=== PATIENT | male | born 1980 | race Caucasian/White ===

== ENCOUNTER 2020-06-02 08:15 | Emergency (ER) | payer SELFPAY ==
[2020-06-02] MEDS ORDERED: DIAZEPAM 5 MG TABLET PO ONE (08:45)
[2020-06-02] MEDS ORDERED: KETOROLAC TROMETHAMINE 60 MG/2 ML SDV IM ONE (08:45)
[2020-06-02] MEDS ORDERED: OXYCODONE-ACETAMINOPHEN 5-325 MG TABLET PO ONE (08:45)
--- NOTE | 2020-06-02 09:09 | ER Document Report ---
ED Fall - General Chief Complaint: Fall Injury Stated Complaint: FALL/BACK PAIN Time Seen by Provider: 06/02/20 08:34 Notes: CHIEF COMPLAINT: Back pain from fall HPI: 40-year-old male presenting to the emergency department for evaluation of low back pain after a mechanical fall. Tripped over his dog fell backwards landing on his buttocks on the steps. Complains of pain to the right lower back and lower spine region. Denies incontinence of urine or bowel denies numbness or tingling in the legs. ROS: See HPI - all other systems were reviewed and are otherwise negative Constitutional: no fever or recent illness : no dysuria Integumentary: no rash Allergy: no hives Musculoskeletal: + extremity pain or swelling, positive back pain Neurological: no numbness/tingling, no weakness MEDICATIONS: I agree with the patient medications as charted by the RN. ALLERGIES: I agree with the allergies as charted by the RN. PAST MEDICAL HISTORY/PAST SURGICAL HISTORY: Reviewed and agree as charted by RN. SOCIAL HISTORY: Reviewed and agree as charted by RN. FAMILY HISTORY: No significant familial comorbid conditions directly related to patient complaint EXAM: Reviewed vital signs as charted by RN. CONSTITUTIONAL: Airway patent; alert and oriented and responds appropriately to questions. Well-appearing, well-nourished, moderate distress secondary to pain HEAD: Normocephalic, atraumatic EYES: Conjunctivae clear, sclerae non-icteric ENT: normal nose; no bleeding; normal pharynx, normal voice, no stridor, NECK: Trachea is midline; spine non-tender, no step-offs, good range of motion; no contusions or hematomas CARD: Normal symmetric pulses; RRR; no murmurs, no clicks, no rubs, no gallops RESP: Normal chest excursion with respiration; chest wall appears atraumatic without ecchymoses or crepitance; Breath sounds clear and equal bilaterally ABD/GI: Appears atraumatic without contusions or hematomas; non-distended, soft, non-tender, no rebound, no guarding; no palpable organomegaly or masses PELVIS: Stable, nontender BACK: There is tender and swelling over the lower lumbar spine more on the right side in the area of L4-L5. There is bruising and abrasion with soft tissue swelling over the right lower lumbar musculature in the upper aspect of the right gluteal region with tenderness on palpation. No saddle anesthesia. Patient is able to weight-bear. EXT: Normal ROM in all joints; non-tender to palpation; no cyanosis, no effusions, no edema SKIN: Normal color for age and race; warm; dry; good turgor; no apparent lesions NEURO: Moves all extremities equally; Motor and sensory function intact PSYCH: The patient's mood and manner are appropriate. MDM: 40-year-old male injury to the low back from a fall. Will obtain x-ray imaging to evaluate for fracture he is neurologically intact. Will treat pain and reassess - Related data Allergies/Adverse Reactions: No Known Allergies Allergy (Verified 06/02/20 09:17) Past Medical History - Social History Smoking Status: Never Smoker Chew tobacco use (# tins/day): Yes Frequency of alcohol use: Occasional Family History: Reviewed & Not Pertinent Physical Exam - Vital signs Vitals: Temp Pulse Resp BP Pulse Ox 98.2 F 94 18 151/118 H 99 06/02/20 08:20 06/02/20 08:20 06/02/20 08:20 06/02/20 08:20 06/02/20 08:20 Course - Re-evaluation Re-evalutation: 06/02/20 10:16 X-ray of the lumbar spine shows very slight anterior wedging of T12 per the radiologist. This is not directly in the location of the patient's pain, patient states that he spent many years doing mixed martial arts as well. Discussed with Dr. Piedra, attending. Will obtain CT of the area to ensure no acute fracture 06/02/20 10:35 CT imaging of the T12 vertebra is likely chronic wedging, discussed with the patient, will place on pain medication, anti-inflammatories, muscle relaxer, orthopedic referral he is neurologically intact. Patient states he does feel better with the medications 06/02/20 10:39 I believe the patient's initial hypertension was related to his acute pain. We will have nursing recheck prior to discharge, if still mildly elevated may follow-up with PCP for recheck - Vital Signs Vital signs: Temp Pulse Resp BP Pulse Ox 98.2 F 94 18 151/118 H 99 06/02/20 08:49 06/02/20 08:20 06/02/20 08:20 06/02/20 08:20 06/02/20 08:20 Discharge - Discharge Clinical Impression: Contusion of lower back and pelvis, initial encounter, HTN (hypertension) with goal to be determined Fall down stairs Qualifiers: Encounter type: initial encounter Qualified Code(s): W10.8XXA - Fall (on) (from) other stairs and steps, initial encounter Condition: Stable Disposition: HOME, SELF-CARE Additional Instructions: 1. Warm heat to the lower back twice daily 2. no heavy lifting for 2-3 days 3. medications as prescribed, no driving on narcotics or muscle relaxers 4. follow up with orthopedics for further evaluation and treatment as needed for any continuing pain or problems, call for appt. 5. return to the ER for any onset of incontinence of urine, fever > 101 or worsening condition Prescriptions: Oxycodone HCl/Acetaminophen [Percocet 5-325 mg Tablet] 1 tab PO Q4H PRN #15 tab PRN Reason: Diazepam [Valium 5 mg Tablet] 5 mg PO QIDP PRN #15 tablet PRN Reason: Diclofenac Sodium [Voltaren 50 Mg Tablet.] 50 mg PO BID #20 tablet. Referrals: EILEEN BIRCH JR, DO [ACTIVE PROVISIONAL STAFF] - Follow up as needed
--- NOTE | 2020-06-02 09:36 | RADIOLOGY REPORT (SQ) ---
EXAM DESCRIPTION: PELVIS AP IMAGES COMPLETED DATE/TIME: 06/02/2020 9:10 am REASON FOR STUDY: fall COMPARISON: None. NUMBER OF VIEWS: One view TECHNIQUE: AP Pelvis LIMITATIONS: None. FINDINGS: MINERALIZATION: Normal. HIPS: No acute fracture or dislocation. No worrisome bone lesions. PELVIS AND SACRUM: No acute fracture or dislocation. No worrisome bone lesions. PUBIS AND ISCHIUM: No acute fracture. LOWER LUMBAR SPINE: No significant findings as visualized. SOFT TISSUES: No findings. OTHER: There are phleboliths in the pelvis. IMPRESSION: NEGATIVE STUDY OF THE PELVIS. COMMENT: Pelvic fractures are often occult on plain radiographs. If strong clinical suspicion for f racture, recommend CT or MR. TECHNICAL DOCUMENTATION: JOB ID: [id number] 2010 [employer]- All Rights Reserved Reading location - IP/workstation name: [email or web address]
--- NOTE | 2020-06-02 09:37 | RADIOLOGY REPORT (SQ) ---
EXAM DESCRIPTION: L SPINE WHOLE IMAGES COMPLETED DATE/TIME: 06/02/2020 9:10 am REASON FOR STUDY: fall lower lumbar pain on right COMPARISON: None. NUMBER OF VIEWS: Five views including obliques. TECHNIQUE: AP, lateral, oblique, and sacral radiographic images acquired of the lumbar spine. LIMITATIONS: None. FINDINGS: MINERALIZATION: Normal. SEGMENTATION: Normal. No transitional anatomy. ALIGNMENT: Normal. VERTEBRAE: Very slight anterior wedging of T12. This can be a normal variant. DISCS: Preserved height. No significant osteophytes or end plate irregularity. POSTERIOR ELEMENTS: Pedicles and facets are intact. No pars defect or posterior arch defects. HARDWARE: None in the spine. PARASPINAL SOFT TISSUES: Normal. PELVIS: Intact as visualized. No fractures or worrisome bone lesions. SI joints intact. OTHER: No other significant finding. IMPRESSION: Mild anterior wedging of T12 as described. No other significant findings. TECHNICAL DOCUMENTATION: JOB ID: [id number] 2010 [employer]- All Rights Reserved Reading location - IP/workstation name: [email or web address]
--- NOTE | 2020-06-02 10:30 | RADIOLOGY REPORT (SQ) ---
EXAM DESCRIPTION: CT THORACIC SPINE WITHOUT IMAGES COMPLETED DATE/TIME: 06/02/2020 10:19 am REASON FOR STUDY: evaluate poss fracture T11-L1 COMPARISON: Conventional radiographs obtained earlier the same day. TECHNIQUE: Axial images acquired through the thoracic spine without intravenous contrast. Images re viewed with lung, soft tissue and bone windows. Reconstructed coronal and sagittal MPR images review ed. Images stored on PACS. All CT scanners at this facility use dose modulation, iterative reconstruction, and/or weight based d osing when appropriate to reduce radiation dose to as low as reasonably achievable (ALARA). [facility]: Dose Right [facility]: CareDose [facility]: Dose Right [facility]: Teradose 4D [facility]: Teracent RADIATION DOSE: CT Rad equipment meets quality standard of care and radiation dose reduction techniq ues were employed. CTDIvol: 29.7 mGy. DLP: 1219 mGy-cm. mGy. LIMITATIONS: None. FINDINGS: VISUALIZED LUNGS: No acute opacities. No pneumothorax. SOFT TISSUES: No soft tissue swelling. No masses. VERTEBRAL BODIES: Very slight wedging of T12 anteriorly age is indeterminate. This can represent a n ormal variant. Soft tissue windows reveal no evidence of surrounding hematoma. Suspect this represe nts chronic finding. DISCS: No significant disc space narrowing. ALIGNMENT: Mild scoliosis with concavity toward the left. TRANSVERSE PROCESSES, POSTERIOR ELEMENTS: No fractures. No dislocation. No acute findings. HARDWARE: None in the spine. VISUALIZED RIBS: No fractures. OTHER: No other significant finding. IMPRESSION: Mild wedging of T12. Age is indeterminate. No other significant findings. TECHNICAL DOCUMENTATION: JOB ID: [id number] Quality ID # [id number]: Final reports with documentation of one or more dose reduction techniques (e.g., Au tomated exposure control, adjustment of the mA and/or kV according to patient size, use of iterative reconstruction technique) 2010 [employer]- All Rights Reserved Reading location - IP/workstation name: [email or web address]
[2020-06-02 10:46] VITALS: BP 150/98
== END 2020-06-02 10:58 | disposition home or self-care (01) ==
LOC: ER 08:15
DX: S30.0XXA Contusion of lower back and pelvis, initial encounter (principal); S30.810A Abrasion of lower back and pelvis, initial encounter; W10.9XXA Fall (on) (from) unspecified stairs and steps, initial encounter; Z72.0 Tobacco use; I10 Essential (primary) hypertension
CPT/HCPCS: 99285; 96372; 72110; 72170; 72128; J1885

== ENCOUNTER 2020-08-06 11:37 | Emergency (ER) | payer SELFPAY ==
--- NOTE | 2020-08-06 12:25 | ER Document Report ---
ED Medical Screen (RME) - General Chief Complaint: Insect Bite Stated Complaint: POSSIBLE SPIDER BITE Time Seen by Provider: 08/06/20 12:18 - HPI Notes: 08/06/20 12:24 40-year-old male to the emergency department with complaints of progressively worsening right ankle pain from an insect bite that occurred 2 days ago. He states he got bit in the past 2 days he has noted increasing redness, swelling, pus draining from the insect bite. Not exactly sure what bit him. He denies any sudhir fevers but states that he had a temperature of 99.6 after taking Tylenol this morning. He states that he has significantly reduced range of motion of the ankle. He cannot point the total or bring the toes backwards without a lot of pain. He has no past medical history for diabetes. Brief medical screening exam illustrates an insect bite that is extremely tender to palpation to the medial aspect of the ankle with noted edema and streaking erythema down into the foot. Patient has a lot of pain when he plantar flexes and dorsiflexes. DP pulses are intact. I performed a brief medical screening exam on the patient determined that the patient needs further evaluation and management by main side provider. I have placed initial orders to help expedite care. - Related Data Allergies/Adverse Reactions: No Known Allergies Allergy (Verified 08/06/20 12:22)
[2020-08-06 12:37] VITALS: BP 142/94
--- NOTE | 2020-08-06 12:56 | RADIOLOGY REPORT (SQ) ---
EXAM DESCRIPTION: ANKLE RIGHT COMPLETE IMAGES COMPLETED DATE/TIME: 08/06/2020 12:46 pm REASON FOR STUDY: ankle pain, swelling, cellulitis, eval osteo COMPARISON: None. NUMBER OF VIEWS: Three views. TECHNIQUE: AP, lateral, and oblique radiographic images acquired of the right ankle. LIMITATIONS: None. FINDINGS: MINERALIZATION: Normal. BONES: No acute fracture or dislocation. No worrisome bone lesions. JOINTS: No effusions. SOFT TISSUES: No soft tissue swelling. No foreign body. OTHER: No other significant finding. IMPRESSION: NEGATIVE STUDY OF THE RIGHT ANKLE. NO RADIOGRAPHIC EVIDENCE OF ACUTE INJURY. TECHNICAL DOCUMENTATION: JOB ID: [id number] 2010 [employer]- All Rights Reserved Reading location - IP/workstation name: [email or web address]
[2020-08-06 13:02] LABS: ABSOLUTE EOSINOPHILS # (AUTO) 0.2 10^3/uL (0.0-0.6); ABSOLUTE LYMPHOCYTES (AUTO) 1.6 10^3/uL (0.5-4.7); ABSOLUTE MONOCYTES (AUTO) 0.7 10^3/uL (0.1-1.4); ABSOLUTE NEUT (AUTO) 4.5 10^3/uL (1.7-8.2); BASOPHILS % (AUTO) 0.7 % (0-2); EOSINOPHILS % (AUTO) 2.3 % (0-6); HEMATOCRIT 45.7 % (37.9-51.0); LYMPHOCYTES % (AUTO) 22.3 % (13-45); MEAN CORPUSCULAR HGB CONC 34.9 g/dL (32.0-36.0); MEAN CORPUSCULAR VOLUME 97 fl (80-97); MONOCYTES % (AUTO) 10.6 % (3-13); PLATELET COUNT 247 10^3/uL (150-450); SEGMENTED NEUTROPHILS % (AUTO) 64.1 % (42-78); TOTAL CELLS COUNTED % (AUTO) 100 %
[2020-08-06 13:21] LABS: ALBUMIN 5.1 g/dL (3.5-5.0); ALKALINE PHOSPHATASE 75 U/L (38-126); ANION GAP 12 (5-19); ASPARTATE AMINO TRANSFERASE 160 U/L (17-59); BILIRUBIN,DIRECT 0.2 mg/dL (0.0-0.4); BILIRUBIN,TOTAL 0.7 mg/dL (0.2-1.3); BLOOD UREA NITROGEN 7 mg/dL (7-20); CALCIUM 9.9 mg/dL (8.4-10.2); CARBON DIOXIDE 25 mmol/L (22-30); CHLORIDE 100 mmol/L (98-107); GLUCOSE 84 mg/dL (75-110); POTASSIUM 4.4 mmol/L (3.6-5.0); TOTAL PROTEIN 7.8 g/dL (6.3-8.2)
[2020-08-06] MEDS ORDERED: CEPHALEXIN 500 MG CAPSULE PO ONE (13:54)
[2020-08-06] MEDS ORDERED: DEXAMETHASONE 4 MG TABLET PO ONE (13:54)
--- NOTE | 2020-08-06 14:00 | ER Document Report ---
ED Skin Rash/Insect Bite/Abscs - General Chief Complaint: Insect Bite Stated Complaint: POSSIBLE SPIDER BITE Time Seen by Provider: 08/06/20 12:18 Notes: CHIEF COMPLAINT: Insect bite right ankle 2 days ago HPI: 40-year-old male presenting for burning and pain and swelling to the right ankle over the last 2 days. Patient was taking his garbage out and felt something bite him on the medial right ankle. He believes he is up-to-date on his tetanus vaccination. Patient states he began having increased swelling and discomfort today with a burning sensation to the plantar aspect of the medial right foot. Patient states initially he did have burning discomfort around where he was bitten. He did take Motrin at home did not take Benadryl. No fever. No chest pain. No shortness of breath. No generalized rash. ROS: See HPI - all other systems were reviewed and are otherwise negative Constitutional: no fever Eyes: no drainage, no blurred vision ENT: no runny nose, no sore throat Cardiovascular: no chest pain Resp: no SOB, no cough GI: no vomiting, no diarrhea, no abdominal pain : no dysuria Integumentary: no rash Allergy: no hives Musculoskeletal: + extremity pain or swelling Neurological: no numbness/tingling, no weakness MEDICATIONS: I agree with the patient medications as charted by the RN. ALLERGIES: I agree with the allergies as charted by the RN. PAST MEDICAL HISTORY/PAST SURGICAL HISTORY: Reviewed and agree as charted by RN. SOCIAL HISTORY: Reviewed and agree as charted by RN. FAMILY HISTORY: No significant familial comorbid conditions directly related to patient complaint EXAM: Reviewed vital signs as charted by RN. CONSTITUTIONAL: Alert and oriented and responds appropriately to questions. Well-appearing; well-nourished HEAD: Normocephalic; atraumatic EYES: Conjunctivae clear, sclerae non-icteric ENT: normal nose; no rhinorrhea; moist mucous membranes NECK: Supple without meningismus CARD: symmetric distal pulses RESP: Normal chest excursion without splinting or tachypnea ABD/GI: non-distended BACK: The back appears normal EXT: Normal ROM in all joints; no cyanosis, no effusions, there is trace edema to the medial aspect of the right ankle. There is a small bite site noted to the medial malleolus region of the right ankle. There is no significant overlying erythema or increased warmth. Very minimal tenderness on palpation. Dorsalis pedis and posterior tibial pulses are present in the right foot and ankle. No induration no fluctuant areas SKIN: Normal color for age and race; warm; dry; good turgor NEURO: Moves all extremities equally; Motor and sensory function intact PSYCH: The patient's mood and manner are appropriate. Grooming and personal hygiene are appropriate. MDM: 40-year-old male with an insect bite to the right ankle. Patient's initial lab work is normal. Patient does not appear septic. There is not a significant cellulitis given that it has been 3 days with slight pain and discomfort and swelling to the area will treat for possible infected insect bite. I have low suspicion for septic joint he has full range of motion of the right ankle. X- ray that was obtained in the triage process is negative for acute findings - Related Data Allergies/Adverse Reactions: No Known Allergies Allergy (Verified 08/06/20 12:22) Past Medical History - Social History Smoking Status: Never Smoker Chew tobacco use (# tins/day): Yes Frequency of alcohol use: Occasional Drug Abuse: None Family History: Reviewed & Not Pertinent Patient has homicidal ideation: No Physical Exam - Vital signs Vitals: Temp Pulse Resp BP Pulse Ox 97.9 F 97 18 142/94 H 98 08/06/20 11:42 08/06/20 11:42 08/06/20 11:42 08/06/20 11:42 08/06/20 11:42 Course - Vital Signs Vital signs: Temp Pulse Resp BP Pulse Ox 97.9 F 97 18 142/94 H 98 08/06/20 11:42 08/06/20 11:42 08/06/20 11:42 08/06/20 11:42 08/06/20 11:42 - Laboratory Result Diagrams: 08/06/20 12:35 08/06/20 12:35 Laboratory results interpreted by me: 08/06/20 08/06/20 12:35 12:35 [facility] 34.0 H AST 160 H ALT 279 H Albumin 5.1 H Discharge - Discharge Clinical Impression: Insect bite of ankle, right, infected Qualifiers: Encounter type: initial encounter Qualified Code(s): S90.561A - Insect bite (nonvenomous), right ankle, initial encounter; L08.9 - Local infection of the skin and subcutaneous tissue, unspecified; W57.XXXA - Bitten or stung by nonvenomous insect and other nonvenomous arthropods, initial encounter Condition: Stable Disposition: HOME, SELF-CARE Instructions: Insect Bites ([facility]) Additional Instructions: Take the antibiotics as prescribed. Anti-inflammatories for pain. Follow-up with your primary care provider for reevaluation of symptoms if they persist Prescriptions: Cephalexin Monohydrate [Keflex 500 mg Capsule] 500 mg PO Q6H 7 Days #28 capsule Cephalexin Monohydrate [Keflex 500 mg Capsule] 500 mg PO Q6H 7 Days #28 capsule Diclofenac Sodium [Voltaren 50 Mg Tablet.] 50 mg PO BID #20 tablet. Diclofenac Sodium [Voltaren 50 Mg Tablet.] 50 mg PO BID #20 tablet. Referrals: REGAN ROOT MD [COMMUNITY BASED STAFF] - Follow up as needed
== END 2020-08-06 14:12 | disposition home or self-care (01) ==
LOC: ER 11:37
DX: S90.561A Insect bite (nonvenomous), right ankle, initial encounter (principal); L08.9 Local infection of the skin and subcutaneous tissue, unspecified; W57.XXXA Bitten or stung by nonvenomous insect and other nonvenomous arthropods, initial encounter
CPT/HCPCS: 99284; 36415; 85025; 80053; 73610; J8540